=== PATIENT | male | born 1995 | race Caucasian/White ===

== ENCOUNTER 2019-05-26 10:24 | Inpatient (IN) | payer OTHER ==
[~2019-05-26 10:24] MED LIST: CEFAZOLIN 2 GM/50 ML (PMX) 50 ML IVPB
[2019-05-26] MEDS: LACTATED RINGER'S 1,000 ML (ENTER RATE) IV (11:43)
[2019-05-26] MEDS ORDERED: SUCCINYLCHOLINE CHLORIDE 100 MG/5 ML SYG IV (13:04)
[2019-05-26] MEDS ORDERED: NEOSTIGMINE 3 MG/3 ML SYRINGE ×2 (13:04→14:12)
[2019-05-26] MEDS ORDERED: LIDOCAINE 2% (SDV) 5 ML INJ (13:04)
[2019-05-26] MEDS ORDERED: MEPERIDINE 100 MG INJ (13:04)
[2019-05-26] MEDS ORDERED: PROPOFOL 20 ML (13:04)
[2019-05-26] MEDS ORDERED: GLYCOPYRROLATE 0.4 MG INJ ×3 (13:04→14:12)
[2019-05-26] MEDS ORDERED: ROCURONIUM 50 MG INJ ×2 (13:04→14:54)
[2019-05-26] MEDS ORDERED: NALOXONE (0.4 MG/ML) INJ IV (13:30)
[2019-05-26] MEDS ORDERED: CEFAZOLIN 1 GM/50 ML (PMX) 50 ML IVPB (13:30)
[2019-05-26] MEDS ORDERED: traMADol 50 MG TAB PO (13:30)
[2019-05-26] MEDS ORDERED: ACETAMINOPHEN 325 MG TAB PO (13:30)
[2019-05-26] MEDS ORDERED: ONDANSETRON 4 MG INJ IV (13:30)
[2019-05-26] MEDS ORDERED: DIPHENHYDRAMINE 25 MG CAP PO (13:30)
[2019-05-26] MEDS ORDERED: AL HYDROX/MG HYDROX/SIMETH 30 ML CUP PO (13:30)
[2019-05-26] MEDS ORDERED: BISACODYL 10 MG SUPP PR (13:30)
[2019-05-26] MEDS ORDERED: DIPHENHYDRAMINE 50 MG INJ IV ×2 (13:30→17:30)
[2019-05-26] MEDS ORDERED: CEFAZOLIN 1 GM INJ (14:12)
[2019-05-26] MEDS ORDERED: SEVOFLURANE 15 MIN (14:45)
[2019-05-26] MEDS ORDERED: HEPARIN 1000 UNITS/ML 10 ML INJ (14:55)
[2019-05-26] MEDS: GELATIN SIZE 100 SPONGE (15:35)
[2019-05-26] MEDS: BUPIVACAINE 0.25%/EPI (SDV) 30 ML INJ (15:35)
[2019-05-26] MEDS: THROMBIN 5000 UNIT (RECOTHROM) VIAL ×2 (15:36→15:39)
[2019-05-26] MEDS: CA CHLORIDE 10% 10 ML SYRINGE (15:36)
[2019-05-26] MEDS: POLYMYXIN/BACITRACIN 1L IRRIG (15:38)
[2019-05-26] MEDS ORDERED: ONDANSETRON 4 MG INJ (15:57)
[2019-05-26] MEDS ORDERED: HYDROmorphONE 1 MG/5 ML IV SYRINGE IV ×2 (17:06→17:30)
[2019-05-26] MEDS: HYDROmorphONE 1 MG/5 ML IV SYRINGE IV ×2 (17:15→17:17)
[2019-05-26] MEDS: MEPERIDINE 25 MG INJ IV (17:29)
[2019-05-26] MEDS ORDERED: LEVALBUTEROL (NEB) 1.25 MG/0.5 ML AMP HHN (17:30)
[2019-05-26] MEDS: ONDANSETRON 4 MG INJ IV (17:30)
[2019-05-26] MEDS ORDERED: FENTAnyl 50 MCG/ML VIAL IV ×2 (17:30)
[2019-05-26] MEDS ORDERED: OXYCODONE/ACETAMINOPHEN (5/325) TAB PO ×2 (17:30)
[2019-05-26] MEDS: KETOROLAC 30 MG INJ IV (17:47)
[2019-05-26] MEDS: FENTAnyl 50 MCG/ML VIAL IV (18:00)
[2019-05-26] MEDS: CYCLOBENZAPRINE 10 MG TAB PO (18:48)
[2019-05-26] MEDS: HYDROmorphONE 0.5 MG/0.5 ML SYG IV ×2 (18:48→23:07)
[2019-05-26] MEDS: D5W-0.45 NACL + KCL 20 MEQ 1,000 ML IV ×2 (18:49→23:23)
[2019-05-26] MEDS: CEFAZOLIN 1 GM/50 ML (PMX) 50 ML IVPB (21:12)
[2019-05-26] MEDS: DOCUSATE SODIUM 100 MG CAP PO (21:12)
[2019-05-26] MEDS: CEPASTAT LOZENGE MT (23:02)
[2019-05-27] MEDS: HYDROmorphONE 0.5 MG/0.5 ML SYG IV ×3 (03:49→10:18)
[2019-05-27] MEDS: CEFAZOLIN 1 GM/50 ML (PMX) 50 ML IVPB ×2 (03:49→12:11)
[2019-05-27] MEDS: D5W-0.45 NACL + KCL 20 MEQ 1,000 ML IV (04:38)
[2019-05-27 05:07] LABS: ADD MAN DIFF? NO
[2019-05-27 05:10] LABS: WHITE BLOOD COUNT 9.7 10^3/ul (4.8-10.8)
[2019-05-27 05:10] LABS: BASOPHILS % 0.3 % (0.0-2.0); EOSINOPHILS # 0.1 10^3/ul (0.0-0.5); EOSINOPHILS % 0.9 % (0.0-7.0); HEMATOCRIT 43.7 % (42.0-52.0); HEMOGLOBIN 14.3 g/dl (14.0-18.0); LYMPHOCYTES # 3.3 10^3/ul (0.8-2.9); LYMPHOCYTES % 34.3 % (15.0-51.0); MEAN CORPUSCULAR HEMOGLOBIN 29.4 pg (29.0-33.0); MEAN CORPUSCULAR HGB CONC 32.7 g/dl (32.0-37.0); MEAN CORPUSCULAR VOLUME 89.7 fl (82.0-101.0); MEAN PLATELET VOLUME 10.1 fl (7.4-10.4); MONOCYTE # 0.7 10^3/ul (0.3-0.9); MONOCYTES % 7.3 % (0.0-11.0); NEUTROPHIL # 5.5 10^3/ul (1.6-7.5); NEUTROPHILS % 56.9 % (39.0-77.0); PLATELET COUNT 301 10^3/UL (140-415); RED BLOOD COUNT 4.87 10^6/ul (4.70-6.10); RED CELL DISTRIBUTION WIDTH 13.1 % (11.5-14.5)
[2019-05-27 05:33] LABS: ANION GAP 7 (5-13); BLOOD UREA NITROGEN 8 mg/dl (7-20); CALCIUM 8.8 mg/dl (8.4-10.2); CARBON DIOXIDE 29 mmol/L (21-31); CHLORIDE 106 mmol/L (97-110); CREATININE 0.73 mg/dl (0.61-1.24); Estimated GFR > 60 mL/min (>60); GLUCOSE 96 mg/dl (70-220); MAGNESIUM 1.9 mg/dl (1.7-2.5); POTASSIUM 4.3 mmol/L (3.5-5.1); SODIUM 142 mmol/L (135-144)
[2019-05-27] MEDS: DOCUSATE SODIUM 100 MG CAP PO (08:19)
[2019-05-27] MEDS: CYCLOBENZAPRINE 10 MG TAB PO (08:19)
[2019-05-27] MEDS: traMADol 50 MG TAB PO (08:22)
[2019-05-27] MEDS ORDERED: HYDROCODONE/APAP (10/325) TAB PO (11:30)
[2019-05-27] MEDS: HYDROCODONE/APAP (10/325) TAB PO ×3 (12:12→18:36)
== END 2019-05-27 19:30 | disposition home or self-care (01) | DRG 518 ==
LOC: REC 10:24 → MS1 18:27
PROC: 0SB20ZZ Excision of Lumbar Vertebral Disc, Open Approach (ICD-10-PCS; principal; 2019-05-26 12:30)
PROC: 01NB0ZZ Release Lumbar Nerve, Open Approach (ICD-10-PCS; 2019-05-26 12:30)
PROC: [UNRECOGNIZED PROCEDURE] (2019-05-26 12:30)
PROC: 4A11X4G Monitoring of Peripheral Nervous Electrical Activity, Intraoperative, External Approach (ICD-10-PCS; 2019-05-26 12:30)
DX: M51.16 Intervertebral disc disorders with radiculopathy, lumbar region (principal); G95.19 Other vascular myelopathies; M21.371 Foot drop, right foot; E66.01 Morbid (severe) obesity due to excess calories; Z68.34 Body mass index [BMI] 34.0-34.9, adult
CPT/HCPCS: 72114; 80048; 83735; 85025; 86999; 88304; 97110; 97116; 97161; 97530